=== PATIENT | female | born 1960 | race Caucasian/White ===

== ENCOUNTER → 2016-12-16 | Outpatient (CLI) | payer OTHER ==
--- NOTE | 2016-12-16 18:38 | MR ---
MRI of the Brain (Without Contrast) December 16, 2016 at 1617 Hours Indication: Aphasia. Technique: Sagittal and axial T1, axial fast inversion recovery, fast T2-weighted, and diffusion-beatriz ghted axial images were obtained without contrast. Comparison: None. Findings: Diffusion-weighted imaging is normal with no evidence of acute ischemia. The FLAIR and T2- weighted imaging reveals a few scattered hyperintense subcortical white matter foci in the frontal lo bes. The largest in the right frontal lobe on image 17 of the axial FLAIR measures 4 mm. No periventr icular white matter lesions. The ventricles are normal caliber and midline. No intracranial hemorrhag e, mass, or extraaxial fluid collection. Normal flow-void in the superior sagittal sinus, basilar art dave, and bilateral internal carotid arteries indicating patency. The pituitary gland, orbits, cervico occipital junction are unremarkable. Pituitary gland is normal in size. Paranasal sinuses and mastoid air cells are clear. Impression: 1. No evidence of ischemia or hemorrhage. 2. Minimal nonspecific subcortical white matter disease in the frontal lobes. The distribution is not typical for multiple sclerosis. Differential diagnosis includes sequela of small vessel disease, pre vious infection, trauma, or migraine.
== END ==
LOC: FIMAGING 15:11
PROVIDERS: ATTEND Psychiatry & Neurology Neurology
DX: R47.01 Aphasia (principal)

== ENCOUNTER → 2017-09-10 | Outpatient (CLI) | payer OTHER | LOC: FIMAGING 16:02 | PROVIDERS: ATTEND Family Medicine | DX: Z12.31 Encounter for screening mammogram for malignant neoplasm of breast (principal) | CPT/HCPCS: G0202 ==

== ENCOUNTER → 2019-02-20 | Outpatient (CLI) | payer BC | LOC: FIMAGING 11:51 | PROVIDERS: ATTEND Family Medicine | DX: Z12.31 Encounter for screening mammogram for malignant neoplasm of breast (principal); Z80.3 Family history of malignant neoplasm of breast ==